=== PATIENT | female | born 1995 | race Caucasian/White ===

== ENCOUNTER 2016-10-15 02:09 | Inpatient (IN) | payer OTHER ==
[~2016-10-15] VITALS: Ht 167.6 cm; Wt 76.7 kg
[~2016-10-15 02:09] MED LIST: FAMO20T PO; ONDA8TAB10 PO
[2016-10-15] MEDS ORDERED: Lactated Ringer's 1,000 ML IV PRN (07:16)
[2016-10-15] MEDS ORDERED: Sodium Chloride LOK Flush 10 mL Syringe IVFLUSH PRN (07:20)
[2016-10-15] MEDS ORDERED: Methylergonovine 0.2 mg/mL Inj IM PRN ×3 (07:20→21:00)
[2016-10-15] MEDS ORDERED: Oxytocin 30 Units/500 mL LR 30 UNITS in IV Premix 1 EACH IV PRN ×3 (07:20→21:00)
[2016-10-15] MEDS ORDERED: Carboprost 250 mCg/mL Inj IM PRN ×3 (07:20→21:00)
[2016-10-15] MEDS ORDERED: Oxytocin 10 Unit/mL Inj IM PRN ×3 (07:20→21:00)
[2016-10-15] MEDS ORDERED: Hemorrhage Kit, Post Partum XX ONE ×3 (07:20→21:00)
--- NOTE | 2016-10-15 08:32 | PCM.HPOB ---
Subjective Date of Service: Oct 15, 2016 Referring Provider: Admitting Physician: Von Cooley MD Primary Care Physician: Awa Khan Attending Physician: Von Cooley MD Chief Complaint Induction if Labor at 41 weeks 4 days gestation History of Present History of Present Illness 21-year-old presents to the [facility] for induction of labor for postdates at 41 weeks 4 days gestation. She has been feeling contractions since 3 AM, she has been having some nausea and vomiting since that time. She feels her water broke yesterday around noon however today the ROM+ test is negative. She is planning to breast-feed and desires an IUD . OB History: (1), Para (0) Obstetrical Complications: Other ( Mickey Cisterna Magna, Echogenic periventricular nodularity) Past Medical History Obstetrical History: none Gynecologic History: History of Yeast, trichomonas, most recently July 2016 and additionally Neisseria gonorrhoeae infections in May 2016. 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 Surgical History: none Hx Tobacco Use: Yes Smoking Status: Current Every Day Smoker (2 cig/day) Genetic Screening/Counseling Genetic Screening/Counseling: Negative Review of Systems Constitutional: Y: Chills Eyes: Denies: Blurred Vision, Vision Changes Cardiovascular: Denies: Chest Pain, Edema Respiratory: Denies: Cough, Wheezing Gastrointestinal: Reports: Nausea, Vomiting, Denies: Epigastric pain Genitourinary: Denies: Dysuria, Hematuria Neurological: Denies: Dizziness Allergy Coded Allergies: codeine (Verified Allergy, Unknown, 08/13/16) Uncoded Allergies: ALL OPIATES (Allergy, Unknown, 10/31/14) Exam Vital Signs Stable, normal Constitutional: Well-developed, Well-nourished HEENT: Atraumatic Lungs: Clear to Auscultation, Normal Air Movement Heart: Regular Rate/Rhythm, No Murmurs/Rubs/Gallops Abdomen: Gravid Neurological/Psychiatric: Alert, Oriented X3 Neuro: Grossly Neurologically Intact Labs/Diagnostics Labs Blood type A+, antibody screen negative, GBS negative, rubella and varicella nonimmune, RPR nonreactive HBsAg negative HIV nonreactive gonorrhea and chlamydia negative Maternal Blood Type: A (+) Hx Rho(D) Immune Globulin: No Antibody Screen: negative Group B Strep Results: Negative Previous with GBS: No Rubella: Non-Immune OB Intrapartum Assessment/Plan Assessment 21-year-old presents to the [facility] for induction of labor for postdates at 41 weeks 4 days gestation. Mother having some contractions, ROM+ negative, cervix dilated to 1.5, 50% effaced -2 station cervix is anterior and moderate in consistency. Problems: (1) Qualifiers: Weeks of gestation: 41 weeks Qualified Code: O48.0 - Post-term Plan: Continue expectant management. Status: Acute ICD Code: Z33.1 (2) Rubella non-immune status, antepartum Plan: MMR vaccine Status: Acute ICD Code: O99.89 (3) Maternal varicella, non-immune Plan: Parasellar vaccine at visit in clinic. Status: Acute ICD Code: O09.899 Pain Management: Epidural when desired, no opioids to be given by mouth or IV due to history of heroine abuse per patient request. Pain Evaluation: Adequate Pain Control Intrapartum plan Continue expectant management, augmentation of labor as needed. Post plan: Continue routine post care LISET GARRISON DO Oct 15, 2016 07:41
[2016-10-15 08:47] LABS: Mean Corpuscular Hemoglobin 29.7 pg (27.0-35.0); Mean Corpuscular Volume 92.3 fL (81-100)
[2016-10-15] MEDS: Ondansetron 2 mg/mL 2 mL Inj IVPUSH PRN ×2 (08:57→16:00)
[2016-10-15] MEDS: Lactated Ringer's 1,000 ML IV PRN ×2 (08:57→10:08)
[2016-10-15] MEDS ORDERED: Lactated Ringer's 500 ML IV ONE (10:12)
--- NOTE | 2016-10-15 10:12 | PCM.HPANE ---
Patient Data Date of Service: Oct 15, 2016 (1010) Surgeon Admitting Provider:Von Cooley MD Attending Provider:Von Cooley MD Primary Care Physician:Awa Khan Other Provider:Deidre Bullock Anesthesia Reason for Visit Induction INDUCTION Ht/WT & BMI Weight (Kilograms): 76 Body Mass Index Allergies Coded Allergies: codeine (Verified Allergy, Unknown, 08/13/16) Uncoded Allergies: ALL OPIATES (Allergy, Unknown, 10/31/14) Diabetes History Hx Diabetes?: No MRSA MRSA: No Medications Active Scripts Famotidine (Pepcid)20 Mg Mlexoc18 Mg PO BID #60 TABLET Prov:Alec Mayen MD 08/14/16 Ondansetron ODT 8 Mg Tab.rapdis8 Mg PO QID PRN For Nausea #10 TABLET Prov:Alec Mayen MD 08/14/16 History History of ENT Problems?: No Hx of Heart Problems?: Yes (history of congenital heart defect repaired as child) Cardiovascular History: Denies:: Congestive Heart Failure Hypertension Hx of Respiratory Problem?: No Respiratory History: Denies:: Tuberculosis Hx Neurologic Problems?: No Hx of GI Problems?: No Hx of Problems?: No Female Hx: Positive for:: Currently Hx Musculoskeletal Problems?: No Hx of Psycho/Social Problems?: No Hx Diabetes: No Hx Alcohol Use: NoHx Substance Use: Yes Smoking Status: Current Every Day Smoker (2 cig/day) Have You Smoked inLast 12 mo: Yes Stop/Bang VILMA Risk Assessment: Low Risk, <3 Yes Risk Assessment Category Category 1A: Patient has history of documented sleep apnea, and HAS NOT received any narcotic, sedative or anesthesia administration during this stay. Category 1B: Patient has history of documented sleep apnea, and HAS received any narcotic , sedative or anesthesia administration during this stay Category 2: Patient has SUSPECTED Obstructive Sleep Apnea, and HAS received any narcotic , sedative or anesthesia administration during this stay. Category 3: Patient has SUSPECTED Obstructive Sleep Apnea and HAS NOT received narcotic, sedative or anesthesia administration during this stay. Category 4: Outpatient in Procedural Areas with known sleep apnea or who screen positive for High Risk via the STOP/BANG questionnaire. Exam Exam General Appearance: Alert, Oriented X3, Cooperative, Moderate Distress HEENT/AIRWAY: MP 2 Lungs: Clear to Auscultation Heart: Exam Unremarkable Meds/Labs/Diagnostics Labs Test 10/15/16 08:30 White Blood Count 27.2th/mm3 (3.8-10.1) Red Blood Count 3.77mil/mm3 (3.90-5.20) Hemoglobin 11.2g/dL (12.0-15.6) Hematocrit 34.8% (35.0-46.0) Mean Corpuscular Volume 92.3fL (81-100) Mean Corpuscular Hemoglobin 29.7pg (27.0-35.0) Mean Corpuscular Hemoglobin Concent 32.2% (32.0-37.0) Red Cell Distribution Width 14.4% (12.3-15.4) Platelet Count 148bil/L (150-400) Plan Impression Patient chart reviewed, patient interviewed and anesthestic plan with risks, benefits, and alternatives discussed, and informed consent obtained. NPO Status: >8hrs ASA Physical Status: ASA2 Mod Systemic Disease Anesthetic Plan: Epidural Bene/Risks/Altern/Consents: Yes HP Complete Prior to Induction: Yes Zian Stephens MD Oct 15, 2016 10:12
[2016-10-15] MEDS ORDERED: fentaNYL 2 mCg/mL-Bupivicaine 0.125% 100 mL Premix EPIDURAL ONE (10:14)
[2016-10-15] MEDS ORDERED: fentaNYL 2 mCg/mL-Bupiv 0.125% 100 ML EPIDURAL SCH (10:15)
[2016-10-15] MEDS ORDERED: Atropine 1 mg/10 mL (Code) Syringe IVPUSH PRN (10:15)
[2016-10-15] MEDS ORDERED: EPHEDrine Sulfate 50 mg/mL Inj IVPUSH PRN (10:15)
[2016-10-15] MEDS ORDERED: Ondansetron 2 mg/mL 2 mL Inj IVPUSH PRN (10:15)
[2016-10-15] MEDS ORDERED: Phenylephrine/NS-PF 100 mCg/mL 5 mL Syringe IVPUSH ONE (10:30)
[2016-10-15] MEDS: Lactated Ringer's 1,000 ML IV SCH ×2 (10:30→13:23)
[2016-10-15] MEDS ORDERED: Lactated Ringer's 1,000 ML IV SCH ×3 (12:54→20:57)
[2016-10-15] MEDS ORDERED: 0.9% Sodium Chloride 1,000 ML ONE (18:12)
[2016-10-15] MEDS ORDERED: Acetaminophen IV 1,000 MG in IV Premix 1 EACH IV ONE (18:50)
[2016-10-15] MEDS: Ampicillin Inj 2,000 MG in 0.9% Sodium Chloride 100 ML IV SCH (19:05)
[2016-10-15] MEDS ORDERED: SODIUM CHLORIDE 0.9% IV SCH (19:30)
[2016-10-15] MEDS ORDERED: GENTAMICIN IV SCH (19:30)
[2016-10-15] MEDS ORDERED: Measles-Mumps-Rubella Vaccine 0.5 mL Inj SUBQ ONE (21:00)
[2016-10-15] MEDS ORDERED: Benzocaine (Dermoplast) 20% 60 Gm Spray TOPICAL PRN (21:00)
[2016-10-15] MEDS ORDERED: Witch Hazel-Glycerin Pads TOPICAL PRN (21:00)
[2016-10-15] MEDS ORDERED: LANOlin HPA 7 Gm Ointment TOPICAL PRN (21:00)
[2016-10-16] MEDS: Ampicillin Inj 2,000 MG in 0.9% Sodium Chloride 100 ML IV SCH ×3 (01:00→13:23)
--- NOTE | 2016-10-16 02:06 | OP ---
[address] [address] OPERATIVE REPORT PATIENT: ANURAG ROE : 1995 MR#: [id number] ADMIT: 10/15/2016 JOB ID: [id number] DATE OF SURGERY: PREOPERATIVE DIAGNOSIS(ES): Intrauterine at 41 weeks and 4 days. 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 SURGEON: Vianney Mina MD DESCRIPTION OF PROCEDURE: This is a 21-year-old, 1 para 0, at 41 weeks and 4 days. She was admitted for induction of labor for postdate. Group B strep negative. complicated with Genetic disease of the fetus, X-linked FLNA mutation, with an ultrasound finding of dary cisterna magna and echogenic periventricular nodularity, with growth significant for an abdominal circumference of 5th percentile at 34 weeks and 4 days ultrasound, and history of maternal opioid abuse in the past , history of gonorrhea and Trichomonas infection during this , with negative screen for gonorrhea, chlamydia and Trichomonas on September 05, 2016. The patient presented for scheduled induction of labor. Cervix was 1-2 cm, 40-50%, -2 mid position and anterior. She was jess spontaneously regularly, then she was augmented with Pitocin that was started around 1317 on October 15, 2016. Then, she progressed in labor to be in active labor at around 1536, where the cervix was found to be 6 cm dilated, 100%, and -1. Then, spontaneous rupture of membrane at 1544. Clear fluid. She progressed in labor and Pitocin to be completely dilated at 1656. In second stage of labor patient developed chorioamnionitis based on fever maximum temperature 39.2 C and tachycardia with baseline 170's along with maternal leukocytosis (WBC 27). No foul odor amniotic fluid and no uterine tenderness. Patient was started on Ampicillin (dose was completed before delivery less then 2 hours before delivery ) and Gentamicin (dose was completed after delivery). Patient delivered on October 15, 2016, at 1947, via spontaneous vaginal delivery over intact perineum under epidural anesthesia. Delivered a female in cephalic occiput anterior position, with two nuchal cords were released before delivery of the posterior arm and shoulders that was delivered without difficulty. The infant was placed on the maternal abdomen. The hemming and tacking machine operator was present in the room for evaluation of the . Apgars were 7 and 8 at one and five minutes, respectively. Delayed cord clamp was performed after 1 minute. The placenta was delivered spontaneously intact with three-vessel cord and sent for pathology. The perineum was examined and a grade 3a perineal laceration was repaired using 2-0 Vicryl and 3-0 Vicryl in the usual fashion. Estimated blood loss 400 mL. weight 3662 g, equivalent to 8 pounds 1 ounce. Oxytocin was started after delivery of the placenta. The fundus was massaged and was firm. Mother and in the delivery room recovering in stable condition. All instrument and needle counts were correct x2. I, Vianney Mina MD, was present and performed the entire above delivery. [facility]
[2016-10-16] MEDS ORDERED: Acetaminophen IV 1,000 MG in IV Premix 1 EACH IV PRN (02:10)
[2016-10-16 06:02] LABS: Mean Corpuscular Hemoglobin 30.1 pg (27.0-35.0); Mean Corpuscular Volume 93.7 fL (81-100)
--- NOTE | 2016-10-16 08:35 | PCM.PNOBPP ---
Subjective Date of Service Oct 16, 2016 Post : Spontaneous Vaginal Delivery Subjective 21-year-old presented to the [facility] for induction of labor for postdates at 41 weeks 4 days gestation on Sep. She had been jess and was found to have some cervical change. Oxytocin was started, patient delivered via normal spontaneous vaginal delivery with third degree perineal laceration yesterday evening. She had been having some tachycardia up to 112 BPM. She was mildly febrile throughout the evening with a max temp of 38.9, at midnight her temperature was 37.2. She has been on Ampicillin and received 1 dose gentamicin. She reports feeling well this morning, has been ambulating on her own no problems with urination or passing gas. She is using only ibuprofen for pain and tolerating that well. She is concerned about baby as the is currently in the special care nursery and there was some discussion of the being sent to [facility]. If baby is transferred patient would like to go with infant even if that means and early discharge. Lochia: Normal Pain Management: PO pain meds (ibuprofen) Gastrointestinal: Good Appetite, No N/V Postop Activity: Ambulating Independently Group B Strep Results: Negative Rubella: Non-Immune Blood Type: A (+) RH Type: Positive Labs Laboratory Tests 10/16/16 05:50: White Blood Count 30.8, Red Blood Count 2.86, Hemoglobin 8.6, Hematocrit 26.8, Mean Corpuscular Volume 93.7, Mean Corpuscular Hemoglobin 30.1, Mean Corpuscular Hemoglobin Concent 32.1, Red Cell Distribution Width 14.5, Platelet Count 136 Exam Vital Signs Vital Signs 10/16/16 00:06 BP 88/52 HR 99 R 18 Temp 37.2 Vital Signs: VS reviewed, stable Exam Abdomen: Fundus firm, Abdomen non-tender : Voiding without difficulty Extremities: Edema 1+ Lungs: Clear to Auscultation, Normal Air Movement Heart: Regular Rate/Rhythm, No Murmurs/Rubs/Gallops General: Alert, Oriented X3 OB Post Assessment/Plan Assessment 21-year-old presented to the [facility] for induction of labor for postdates at 41 weeks 4 days gestation on Sep. She is now day 1 status post normal spontaneous vaginal delivery. Complicated by chorioamnionitis. Patient is doing well overall with normalization of vital signs. WBC increased to 30.8 today from 27.2 yesterday. Problems: (1) (spontaneous vaginal delivery) Plan: Routine care Status: Acute ICD Code: O80 (2) Qualifiers: Weeks of gestation: 41 weeks Qualified Code: O48.0 - Post-term Status: Resolved ICD Code: Z33.1 (3) Rubella non-immune status, antepartum Plan: MMR vaccine given Status: Acute ICD Code: O99.89 (4) Maternal varicella, non-immune Plan: Varicella vaccine at visit in clinic. Status: Acute ICD Code: O09.899 Pain Evaluation: Adequate Pain Control Post plan: Continue routine post care Plan: Continue to monitor for signs of infection. She will have received Amp/Gent x 24 hours around 7pm tonight and then they will be discontinued. Repeat CBC with diff in am. Continue routine care. Possible discharge home tomorrow evening - but more likely discharge home if no additional fevers or concerns. Attending Statement The patient was seen and examined together with Dr. Campos on 10/16/2016 and I agree with the history, exam and plan as outlined in the note above. / MD MELI Vyas ERIKA R DO Oct 16, 2016 08:09 Pietro Garvin MD Oct 16, 2016 15:58
[2016-10-16] MEDS ORDERED: Ascorbic Acid PO (09:03)
[2016-10-16] MEDS ORDERED: DOCU-41 PO (09:03)
[2016-10-16] MEDS ORDERED: FERR-74 PO (09:03)
[2016-10-16] MEDS ORDERED: IBUP800T28 PO (09:03)
[2016-10-16] MEDS: Ascorbic Acid 500 mg Tablet PO SCH ×3 (10:30→19:39)
--- NOTE | 2016-10-16 11:14 | NUR ---
Social Work Note: Initial Assessment D: Pt is a 21 year old female who gave to BG on 10/15/2016. Pt reported that she currently lives in [place] with her mother. Pt indicated that she intends to return to that home with BG once discharged. Pt explained that she has all of the supplies that she will need to care for BG at home. Pt indicated that she is enrolled in [employer], [employer] and [employer]. Pt reported that BG is her first child and she has no previous CPS involvement. 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 Pt and BG both has negative UDS. Pt denied any history of DV. Pt reported a history of Bipolar I Disorder which is currently being managed through regular appointments with her counselor at [facility] and with Sertraline. Pt explained that her symptoms became much more pronounced when she became and she and her PCP decided to start her on the Sertraline. Pt reported that the medication has been helping and her symptoms have been much more manageable. Pt reported that her mother is her primary support in the area and explained that her mother is available to assist in caring for BG if needed. Pt reported that FOB was not involved in her life and has expressed no desire to be involved in caring for BG. Pt declined to provide FOB's name. Pt reported no additional needs prior to discharge. A: Deferred P: Pt is enrolled in appropriate renal social worker. Pt has a history of CD but has been clean and sober for four years with a negative UDS in the hospital. Pt has a strong support in her mother and reported that she feels safe at home and fully supported. Pt has a history of mental illness which is currently being successfully managed by medication and outpatient mental health treatment. property staff accountant reported that Pt and her mother have been appropriate and affectionate with BG while in the hospital. property staff accountant reported no additional concerns. COLD MILL INSPECTOR conferred with property staff accountant and it was determined that no CPS report would be needed at this time. Pt to be discharged once medically cleared by [facility] . MAN Sharif, AAC
[2016-10-16] MEDS ORDERED: Ampicillin Inj 2,000 MG in 0.9% Sodium Chloride 100 ML IV SCH (19:00)
[2016-10-16] MEDS ORDERED: GENTAMICIN IV SCH (19:30)
[2016-10-16] MEDS ORDERED: SODIUM CHLORIDE 0.9% IV SCH (19:30)
[2016-10-17 07:00] LABS: BASOPHILS % (AUTO) 0.2 % (0-3); EOSINOPHILS % (AUTO) 0.7 % (0-5); MONOCYTES % (AUTO) 7.6 % (4-12); Mean Corpuscular Hemoglobin 29.5 pg (27.0-35.0); Mean Corpuscular Volume 93.8 fL (81-100); NEUTROPHILS % (AUTO) 72.2 % (40-74); Platelet Count 139 bil/L (150-400)
--- NOTE | 2016-10-17 10:37 | PCM.PNOBPP ---
Subjective Date of Service Oct 17, 2016 Post : Spontaneous Vaginal Delivery Subjective 21-year-old presented to the [facility] for induction of labor for postdates at 41 weeks 4 days gestation on Sep. She had been jess and was found to have some cervical change. Oxytocin was started, patient delivered via normal spontaneous vaginal delivery with third degree perineal laceration yesterday evening. She received 24hrs of treatment with both Ampicillin and gentamicin. She reports feeling well this morning, has been ambulating on her own no problems with urination or passing gas. She is using ibuprofen and tylenol for pain per her request and tolerating that well. Lochia: Normal Pain Management: PO pain meds (ibuprofen) Gastrointestinal: Good Appetite, No N/V Postop Activity: Ambulating Independently Group B Strep Results: Negative Rubella: Non-Immune Blood Type: A (+) RH Type: Positive Labs Laboratory Tests 10/17/16 06:15: White Blood Count 17.9, Red Blood Count 2.75, Hemoglobin 8.1, Hematocrit 25.8, Mean Corpuscular Volume 93.8, Mean Corpuscular Hemoglobin 29.5, Mean Corpuscular Hemoglobin Concent 31.4, Red Cell Distribution Width 14.3, Platelet Count 139, Neutrophils (%) (Auto) 72.2, Lymphocytes (%) (Auto) 18.2, Monocytes ( %) (Auto) 7.6, Eosinophils (%) (Auto) 0.7, Basophils (%) (Auto) 0.2 Exam Vital Signs Vital Signs BP 89/51 HR 73 R 18 Temp 36.2 Vital Signs: VS reviewed, stable Exam Abdomen: Fundus firm : Voiding without difficulty Extremities: No edema Lungs: Clear to Auscultation, Normal Air Movement Heart: Exam Unremarkable, No Murmurs/Rubs/Gallops General: Alert, Oriented X3 OB Post Assessment/Plan Assessment 21-year-old presented to the [facility] for induction of labor for postdates at 41 weeks 4 days gestation. She subsequently had a normal spontaneous vaginal delivery with signs of chorioamnionitis she was treated for 24 hours with ampicillin and gentamicin. Patient and baby both doing well. WBC trending down. Patient remains anemic and is being treated with iron and vitamin C. Problems: (1) (spontaneous vaginal delivery) Plan: Routine care Status: Acute ICD Code: O80 (2) Qualifiers: Weeks of gestation: 41 weeks Qualified Code: O48.0 - Post-term Status: Resolved ICD Code: Z33.1 (3) Rubella non-immune status, antepartum Plan: MMR vaccine given Status: Acute ICD Code: O99.89 (4) Maternal varicella, non-immune Plan: Varicella vaccine at visit in clinic. Status: Acute ICD Code: O09.899 Pain Evaluation: Adequate Pain Control Post plan: Continue routine post care Plan: Continue to monitor for signs of infection. She will have received Amp/Gent x 24 hours around 7pm tonight and then they will be discontinued. Repeat CBC with diff in am. Continue routine care. Possible discharge home tomorrow evening - but more likely discharge home if no additional fevers or concerns. LISET GARRISON DO Oct 17, 2016 09:44
--- NOTE | 2016-10-17 11:28 | PATH ---
SURGICAL PATHOLOGY Attending Physician:Vianney Mina CASE STATUS: Signed Out PATIENT NAME: ANURAG ROE PID: [id number] : 1995 DATE COLLECTED:10/15/2016 00:00 SPECIMEN: Placenta CLINICAL HISTORY: CHORIOAMNIONITIS 1). PLACENTA FINAL DIAGNOSIS: Placenta with Umbilical Cord and Membranes: 1. Placenta: 596 grams. Acute inflammation of the chorionic plate with associated acute arteritis and phlebitis. Negative for evidence of acute villitis. 2. Umbilical cord: 24.6 cm in length with three normal blood vessels. Cord has a furcate insertion 5.5 cm from the placental edge. Acute omphalitis with associated acute arteritis and phlebitis. 3. membranes: Diffuse severe acute chorioamnionitis. ICD10 O41.1 GROSS DESCRIPTION: The specimen is received in formalin, labeled with the patient's name and consists of an intact placenta and includes placental disc (596 g, 18.5 x 16.2 x 3.5 cm), umbilical cord received in 2 pieces (length-24.6 cm, diameter-1.1 x 0.8 cm) and detached membranes. The membranes rupture site cannot be determined. The membranes are translucent. The umbilical cord has a furcate insertion 5.5 cm from the edge of the placenta and contains 3 vessels. The surface is smooth and shiny with no evidence of meconium. The maternal surface is dark maroon with normal cotyledon formation. The placental disc is spongy with no hematomas, infarcts, nodules, masses, or lesions. Section code: (A) membranes, umbilical cord; (B-C, D-E, F) placenta, 3 full thickness sections. 10/16/16 ICD-9 CODES: CPT CODES: 1: 68481 Electronically Signed Out Kyle Reynoso MD [facility] Pathology [facility] [address], [place] [address] Technical component performed at [facility], [facility] [address], [place], [address]
[2016-10-17] MEDS: Ascorbic Acid 500 mg Tablet PO SCH (16:03)
[2016-10-18] MEDS: Ascorbic Acid 500 mg Tablet PO SCH (09:08)
--- NOTE | 2016-10-18 09:32 | PCM.PNOBPP ---
Subjective Date of Service Oct 18, 2016 Post : Spontaneous Vaginal Delivery Subjective 21-year-old was admitted to the [facility] for induction of labor for postdates at 41 weeks 4 days gestation on Sep. Patient delivered via normal spontaneous vaginal delivery with third degree perineal laceration The evening of Oct 15. She received 24hrs of treatment with both Ampicillin and gentamicin. She reports feeling well this morning, has been ambulating on her own, she goes to and from the [facility]. She is having no problems with urination or passing gas. She is using ibuprofen and tylenol for pain per her request and tolerating that well. No light headedness or dizziness. Lochia: Normal Pain Management: PO pain meds (ibuprofen) Gastrointestinal: Good Appetite, No N/V Postop Activity: Ambulating Independently Group B Strep Results: Negative Rubella: Non-Immune Blood Type: A (+) RH Type: Positive Labs Laboratory Tests 10/17/16 06:15: White Blood Count 17.9, Red Blood Count 2.75, Hemoglobin 8.1, Hematocrit 25.8, Mean Corpuscular Volume 93.8, Mean Corpuscular Hemoglobin 29.5, Mean Corpuscular Hemoglobin Concent 31.4, Red Cell Distribution Width 14.3, Platelet Count 139, Neutrophils (%) (Auto) 72.2, Lymphocytes (%) (Auto) 18.2, Monocytes ( %) (Auto) 7.6, Eosinophils (%) (Auto) 0.7, Basophils (%) (Auto) 0.2 Exam Vital Signs Vital Signs: VS reviewed, stable Exam Abdomen: Fundus firm, Abdomen soft, Abdomen non-tender Extremities: Normal pulses, Edema 1+ Lungs: Clear to Auscultation, Normal Air Movement Heart: Regular Rate/Rhythm, No Murmurs/Rubs/Gallops General: Alert, Oriented X3 OB Post Assessment/Plan Assessment 21-year-old presented to the [facility] for induction of labor for postdates at 41 weeks 4 days gestation. She subsequently had a normal spontaneous vaginal delivery with signs of chorioamnionitis she was treated for 24 hours with ampicillin and gentamicin. Patient remains anemic and is being treated with iron and vitamin C. Critically elevated WBC has come down, Patient and baby both doing well. Problems: (1) (spontaneous vaginal delivery) Plan: Routine care Status: Acute ICD Code: O80 (2) Qualifiers: Weeks of gestation: 41 weeks Qualified Code: O48.0 - Post-term Status: Resolved ICD Code: Z33.1 (3) Rubella non-immune status, antepartum Plan: Patient's lab value falls in the equivocal range, she will be given MMR vaccine today. Status: Acute ICD Code: O99.89 (4) Chorioamnionitis Qualifiers: Fetus number: single or unspecified fetus Trimester: third trimester Qualified Code: O41.1230 - Chorioamnionitis, third trimester, not applicable or unspecified Plan: Treated adequately with 24 hours of Ampicillin and Gentamicin. Patient is meeting goals without signs of continued infection. Status: Resolved ICD Code: O41.1290 (5) Maternal varicella, non-immune Plan: Varicella vaccine at visit in clinic. Status: Acute ICD Code: O09.899 Pain Evaluation: Adequate Pain Control Post plan: Continue routine post care Plan: Discharge home today with no additional fevers or concerns. Attending Statement Patient seen and examined. She is doing well this morning. No fevers or chills , has been afebrile since 2300 hrs 10/15. Rubella nonimmune, plan to vaccinate today prior to discharge. Will need varicella in clinic. Pumping with some difficulty in let down and milk supply. Pain is well controlled, ambulating within her room, lochia is minimal. Will plan to discharge to boarder status today, likely infant discharge tomorrow. precautions reviewed. LISET GARRISON DO Oct 18, 2016 09:05 Michelle Lyles MD Oct 18, 2016 12:56
--- NOTE | 2016-10-18 10:03 | PCM.DIOB ---
Obstetrical Disch Instruction Dates of Hospitalization Date of Hospital Admission Oct 15, 2016 at 07:16 Providers Admitting Physician: Von Cooley MD Primary Care Physician: Awa Khan Attending Physician: Von Cooley MD Discharge Diagnosis Problems: (1) (spontaneous vaginal delivery) Plan: Mother doing well. Discharge to [facility] status in stable condition Status: Acute ICD Code: O80 (2) Qualifiers: Weeks of gestation: 41 weeks Qualified Code: O48.0 - Post-term Status: Resolved ICD Code: Z33.1 (3) Rubella non-immune status, antepartum Plan: MMR vaccine given Status: Acute ICD Code: O99.89 (4) Maternal varicella, non-immune Plan: Varicella vaccine at visit in clinic. Status: Acute ICD Code: O09.899 Diet Discharge Diet: No restrictions Activity Discharge Activity-General: Pelvic Rest for 6 weeks, Try not to overdue, Balance rest and activity, Activity as pain allows, No lifting >15 pounds for 2 weeks Dressing and Incisional Care Hygiene: May shower, Perineal care, Dermoplast spray, Witch Sammi pads Additional Instructions Discharge Instructions Be sure to follow up in 6 weeks at [facility]. You have been given a prescription for ibuprofen to take as needed for pain. You been given a prescription for docusate to keep you regular, please take this as needed Please continue to take your vitamin Pelvic rest for 6 weeks (nothing per vagina including intercourse, tampons) If you have a fever greater than 100.4, please call [facility]. There is always someone supervisor show operations to talk to. If you have an increase in bleeding, call [facility]. If you have a lot of bleeding suddenly, especially if you have symptoms of dizziness & weakness with it, get emergency help. If you start experiencing extreme depression, especially if you feel that you are a danger to yourself or your family, seek emergency help. You have been through a lot -- BE SURE TO TAKE CARE OF YOURSELF. Follow Up Plan Follow Up Plan Follow up in [facility] in 6 weeks. Follow-up appointment: Weeks (6) Call your provider for: Fever or Chills, Shortness of breath, Heavy vaginal bleeding, Heavy bleeding, Epigastric pain, Excessive constipation, Vaginal discomfort, Red painful breasts JAGJIT MCELROY DO Oct 18, 2016 10:00
[2016-10-18] MEDS ORDERED: Measles-Mumps-Rubella Vaccine 0.5 mL Inj SUBQ ONE (10:55)
--- NOTE | 2016-10-18 11:46 | PCM.DC.OB ---
Obstetrical Discharge Summary Date of Service Oct 18, 2016 Date of hospital admission Oct 15, 2016 at 07:16 Date of Discharge: Oct 18, 2016 Providers Admitting Physician: Von Cooley MD Primary Care Physician: Awa Khan Attending Physician: Von Cooley MD Diagnosis at Time of Discharge Normal spontaneous vaginal delivery Problems: (1) (spontaneous vaginal delivery) Plan: Mother doing well. Discharge to [facility] status in stable condition Status: Acute ICD Code: O80 (2) Qualifiers: Weeks of gestation: 41 weeks Qualified Code: O48.0 - Post-term Status: Resolved ICD Code: Z33.1 (3) Rubella non-immune status, antepartum Plan: Rubella equivocal, MMR vaccine given today. Status: Acute ICD Code: O99.89 (4) Chorioamnionitis Qualifiers: Fetus number: single or unspecified fetus Trimester: third trimester Qualified Code: O41.1230 - Chorioamnionitis, third trimester, not applicable or unspecified Status: Resolved ICD Code: O41.1290 (5) Maternal varicella, non-immune Plan: Varicella vaccine at visit in clinic. Status: Acute ICD Code: O09.899 Invasive procedures Normal spontaneous vaginal delivery with third degree tear. Date of Procedure: Oct 15, 2016 Brief History and Physical: HPI on day of admission: 21-year-old presents to the [facility] for induction of labor for postdates at 41 weeks 4 days gestation. She has been feeling contractions since 3 AM, she has been having some nausea and vomiting since that time. She feels her water broke yesterday around noon however today the ROM+ test is negative. She is planning to breast-feed and desires an IUD . Exam on day of discharge: vital signs stable and normal, well-nourished well- appearing, heart regular rate and rhythm no murmurs, lungs clear to auscultation bilaterally with good air movement. Abdomen soft, uterine fundus firm. +1 edema in bilateral lower extremities. Appropriate mood and affect. Hospital Course: 21-year-old presented to the [facility] for induction of labor for postdates at 41 weeks 4 days gestation on Sep. She had been jess and was found to have some cervical change. Oxytocin was started. Patient had elevation of temperature and was tachycardic, she was started on both Ampicillin and gentamicin. Patient delivered via normal spontaneous vaginal delivery with third degree perineal laceration. She received 24hrs of antibiotic treatment. She was afebrile for 48 hours prior to discharge. Patient remained asymptomatically hypotensive throughout her stay. She is discharged to boarder status in stable condition. ([Ascorbic Acid]) 500 MG TABLET 500 MG PO DAILY Take with Iron Prescribed by: LISET GARRISON DO Docusate Sodium (Colace) 100 Mg Capsule 100 MG PO DAILY PRN PRN For Constipation Prescribed by: LISET GARRISON DO Famotidine (Pepcid) 20 Mg Tablet 20 MG PO BID Prescribed by: CHRIS ANN MD Ferrous Sulfate (Feosol) 325 Mg Tablet 325 MG PO DAILY Take with Vitamin C Prescribed by: LISET GARRISON DO Ibuprofen (Ibuprofen) 800 Mg Tablet 800 MG PO Q6H PRN PRN For Pain Prescribed by: LISET GARRISON DO Ondansetron ODT (Ondansetron ODT) 8 Mg Tab.rapdis 8 MG PO QID PRN PRN For Nausea Prescribed by: CHRIS ANN MD Disposition Discharge to boarder status. Follow-up plan 6 weeks at [facility] Discharge Diet: No restrictions Discharge Activity-General: Pelvic Rest for 6 weeks, Balance rest and activity Patient instructions Be sure to follow up in 6 weeks at [facility]. You have been given a prescription for ibuprofen to take as needed for pain. You been given a prescription for docusate to keep you regular, please take this as needed Please continue to take your vitamin Pelvic rest for 6 weeks (nothing per vagina including intercourse, tampons) If you have a fever greater than 100.4, please call [facility]. There is always someone cogeneration operator to talk to. If you have an increase in bleeding, call [facility]. If you have a lot of bleeding suddenly, especially if you have symptoms of dizziness & weakness with it, get emergency help. If you start experiencing extreme depression, especially if you feel that you are a danger to yourself or your family, seek emergency help. You have been through a lot -- BE SURE TO TAKE CARE OF YOURSELF. Attending Statement: Doing well today, plan to discharge home. Blood pressures are low but she is asymptomatic. She has been afebrile off of antibiotics for two days, last temperature at time of delivery. Baby girl is stable and doing well. Plan to discharge home, follow up in clinic for 6 week visit. Plan for IUD insertion at that time as well as varicella vaccination. LISET GARRISON DO Oct 18, 2016 11:15 Michelle Lyles MD Oct 22, 2016 08:56
[2016-10-18 12:20] VITALS: BP 97/62; PULSE 65; RESP 18
== END 2016-10-18 14:00 | disposition home or self-care (01) | DRG 542 ==
LOC: FBC 07:16
PROVIDERS: ADMIT Obstetrics & Gynecology; ATTEND Obstetrics & Gynecology
PROC: 0DQR0ZZ Repair Anal Sphincter, Open Approach (ICD-10-PCS; 2016-10-15)
PROC: 3E0P7GC Introduction of Other Therapeutic Substance into Female Reproductive, Via Natural or Artificial Opening (ICD-10-PCS; 2016-10-15)
PROC: 10E0XZZ Delivery of Products of Conception, External Approach (ICD-10-PCS; principal; 2016-10-16)
PROC: 3E0234Z Introduction of Serum, Toxoid and Vaccine into Muscle, Percutaneous Approach (ICD-10-PCS; 2016-10-18)
DX: O48.0 Post-term pregnancy (principal); O41.1230 Chorioamnionitis, third trimester, not applicable or unspecified; O70.20 Third degree perineal laceration during delivery, unspecified; O69.81X0 Labor and delivery complicated by cord around neck, without compression, not applicable or unspecified; O99.334 Smoking (tobacco) complicating childbirth; Z3A.41 41 weeks gestation of pregnancy; Z37.0 Single live birth; Z23 Encounter for immunization

== ENCOUNTER 2017-02-13 18:22 | Emergency (ER) | payer OTHER ==
[~2017-02-13] VITALS: Ht 167.6 cm; Wt 54.5 kg
[~2017-02-13 18:22] MED LIST changes: +Ascorbic Acid PO; +DOCU-41 PO; +FERR-74 PO; +IBUP800T28 PO
[2017-02-13 18:25] VITALS: BP 102/76; PULSE 99; RESP 18; O2SAT 97
[2017-02-13 19:44] LABS: BASOPHILS % (AUTO) 0.2 % (0-3); EOSINOPHILS % (AUTO) 0.1 % (0-5); MONOCYTES % (AUTO) 12.9 % (4-12); Mean Corpuscular Hemoglobin 30.1 pg (27.0-35.0); NEUTROPHILS % (AUTO) 72.8 % (40-74); Platelet Count 124 bil/L (150-400)
[2017-02-13 20:06] LABS: APPEARANCE,URINE CLEAR (CLEAR,HAZY); COLOR,URINE YELLOW (YELLOW); OCCULT BLOOD,URINE NEGATIVE (NEGATIVE); UROBILINOGEN,URINE NORMAL (NORMAL)
--- NOTE | 2017-02-13 20:13 | DRSVH ---
PROCEDURE: X-RAY CHEST ONE VIEW, PORTABLE ([id number]) INDICATIONS: cough TECHNIQUE: One view of the chest was acquired. COMPARISON: None. FINDINGS: Surgical changes and devices: None. Lungs and pleura: No pleural effusions or pneumothorax. Lungs are clear. Mediastinum: Mediastinal contours appear normal. Heart size is normal. Bones and chest wall: No suspicious bony lesions. Overlying soft tissues appear unremarkable. IMPRESSION: No acute acute disease is seen in the chest. Cause of a vertical shadow just lateral to the descending aorta and medial to the left heart border i s not understood. 2 view chest may be useful in this patient. Dictated by: Rah Willoughby M.D. on 02/13/2017 at 20:08 Approved by: Rah Willoughby M.D. on 02/13/2017 at 20:11
--- NOTE | 2017-02-13 21:02 | ED.REPORT ---
HPI-General Illness Date of Service February 13, 2017 ED Provider: Paxton Estevez MD 22 year old female presents to the ER with 3 days of nasal congestion. Pt has been taking cough drops with slight improvement. This morning woke up with general malaise, myalgias/arthralgias, headache, chills, mild nausea and cough ( with vomiting). Pt denies diarrhea, dysuria and rash. Pt's daughter has also been ill. Nursing Notes Stated Complaint: SINUS PAIN & VOMITING Chief Complaint: FLU/Cold Symptoms Nursing Notes Reviewed: Yes Allergies: Coded Allergies: codeine (Verified Allergy, Unknown, 08/13/16) Uncoded Allergies: ALL OPIATES (Allergy, Unknown, 10/31/14) Scheduled ([Ascorbic Acid]) 500 MG TABLET 500 MG PO DAILY Take with Iron Famotidine (Pepcid) 20 Mg Tablet 20 MG PO BID Ferrous Sulfate (Feosol) 325 Mg Tablet 325 MG PO DAILY Take with Vitamin C Scheduled PRN Docusate Sodium (Colace) 100 Mg Capsule 100 MG PO DAILY PRN PRN For Constipation Ibuprofen (Ibuprofen) 800 Mg Tablet 800 MG PO Q6H PRN PRN For Pain Ondansetron ODT (Ondansetron ODT) 8 Mg Tab.rapdis 8 MG PO QID PRN PRN For Nausea General Time Seen by MD: 21:01 Chief Complaint Flu-like illness Hx Obtained From: Patient Arrived By: Walk-in Onset Occurred: 3 days ago Symptom Duration: Since onset Quality: Aching (diffuse) Severity: Current: Moderate Associated with: Reports: Fever, Joint pain Past Medical History Past Medical History hx of melanoma, treated at [facility], had radiation for 6 times at age 13 H/o constipation UTI Past Surgical History denies Smoking History Current Every Day Smoker Social History Alcohol Use: Denies alcohol use Drug Use: In recovery Occupation lives with friend, working as a [employer] Ambulatory Status Independent Review of Systems Full Review of Systems Constitutional: Reports: Chills, Fever, Malaise Ears / Nose / Throat: Reports: Nasal congestion, Denies: Sore throat Respiratory: Reports: Non-productive cough, Denies: Shortness of breath GI: Reports: Nausea, Denies: Abdominal pain, Diarrhea, Vomiting Female: Denies: Dysuria, Flank pain, Musculoskeletal: Reports: Joint pain, Myalgia, Denies: Back pain Skin: Denies Rash Neurologic: Reports: Headache, Denies: Change LOC Complete sys rev & neg: except as marked. Physical Exam Vital Signs Vital Signs Date Time Temp Pulse Resp B/P Pulse Ox O2 Delivery O2 Flow Rate FiO2 02/13/17 18:25 38.6 99 18 102/76 97 Room Air Initial VS: Reviewed Respiratory: Breath sounds normal, Clear to auscultation, No respiratory distress Cardiovascular: Regular rate & rhythm, Heart sounds normal, Intact distal pulses Abdomen / GI: Soft, Non-tender, No guarding, No rebound, No distention Extremities: Vascular intact, Neuro intact, No swelling, No tenderness Skin: Warm (Hot to touch), Dry, No cyanosis (No rash) Neurologic: Alert, Oriented, Nonfocal Psychiatric: Mood/affect normal, Behavior normal, Normal thought content General/Constitutional: Awake, Alert Head / Eyes: Atraumatic, Normocephalic, PERRL ENT: Airway patent, Mucous membranes moist, Pharynx NL, Tympanic membs NL, Ext aud canal NL, Nose exam NL, No sinus tenderness Neck: Supple, No meningismus, Full range of motion, No adenopathy Back: Atraumatic, Full range of motion Mild CVAT bilat Interpretation & Diagnostics Lab Results Interpretation Result Diagram: 02/13/17192902/13/171929 Test 02/13/17 19:30 White Blood Count 10.3th/mm3 (3.8-10.1) Red Blood Count 3.99mil/mm3 (3.90-5.20) Hemoglobin 12.0g/dL (12.0-15.6) Hematocrit 36.3% (35.0-46.0) Mean Corpuscular Volume 91.0fL (81-100) Mean Corpuscular Hemoglobin 30.1pg (27.0-35.0) Mean Corpuscular Hemoglobin Concent 33.1% (32.0-37.0) Red Cell Distribution Width 14.9% (12.3-15.4) Platelet Count 124bil/L (150-400) Neutrophils (%) (Auto) 72.8% (40-74) Lymphocytes (%) (Auto) 13.8% (14-46) Monocytes (%) (Auto) 12.9% (4-12) Eosinophils (%) (Auto) 0.1% (0-5) Basophils (%) (Auto) 0.2% (0-3) Urine Color Yellow (YELLOW) Urine Appearance Clear (CLEAR,HAZY) Urine pH 6.0 (5.0-8.0) Urine Specific Weatherby 1.015 (1.003-1.035) Urine Protein Negativemg/dL (NEG,TRACE) Urine Glucose (UA) Negativemg/dL (NEGATIVE) Urine Ketones Negativemg/dL (NEGATIVE) Urine Occult Blood Negative (NEGATIVE) Urine Nitrite Negative (NEGATIVE) Urine Bilirubin Negative (NEGATIVE) Urine Urobilinogen Normalmg/dL (NORMAL) Urine Leukocyte Esterase Negative (NEGATIVE) Urine RBC 0-2/hpf (0-2) Urine WBC 0-5/hpf (0-5) Urine Epithelial Cells Few/hpf (NONE-MOD) Urine Crystals None seen (NONE SEEN) Urine Bacteria None/hpf (NONE-FEW) Urine Hyaline Casts None/lpf (NONE) Urine Granular Casts None seen (NONE SEEN) Urine Waxy Casts None seen (NONE SEEN) Urine Red Blood Cell Casts None seen (NONE SEEN) Urine White Blood Cell Casts None seen (NONE SEEN) Urine Mucus None seen (None Seen) Urine Trichomonas None seen (NONE SEEN) Urine Yeast None (NONE SEEN) Urinalysis Comment None Urine Culture Reflexed Not indicated Sodium Level 135mEq/L (134-144) Potassium Level 4.1mEq/L (3.5-5.2) Chloride Level 100mEq/L (97-108) Carbon Dioxide Level 23mmol/L (18-29) Blood Urea Nitrogen 12mg/dL (6-20) Creatinine 0.82mg/dL (0.57-1.00) Estimat Glomerular Filtration Rate 123mL/min (>59) Glucose Level 98mg/dL (60-99) Calcium Level 8.9mg/dL (8.5-10.1) Total Bilirubin 0.3mg/dL (0.0-1.2) Aspartate Amino Transf (AST/SGOT) 34U/L (0-50) Alanine Aminotransferase (ALT/SGPT) 27U/L (0-32) Alkaline Phosphatase 83U/L (25-150) Pro-B-Type Natriuretic Peptide 168.9pg/mL (0-130) Total Protein 7.3g/dL (6.4-8.4) Albumin 3.8g/dL (3.4-5.0) Hold Ahuja Top Tube Received (Received) Re-Eval/Medical Decision Time of Eval: 21:26 Re-Evaluation/Progress Note: Discussed plan for discharge and follow up. All questions addressed. Counseled Regarding: Diagnosis, Need for follow-up, When/why to return to ED Discharge & Departure Primary Impression: Fever Fever type: unspecified Qualified Code: R50.9 - Fever, unspecified Disposition: Home Discharge Condition All VS Reviewed: Yes Condition: Stable Patient Instructions: Fever in Adults (ED) Additional Instructions: Your symptoms are most likely due to a viral illness. Get plenty of rest and drink frequent fluids. For pain you can take 800mg Ibuprofen every 8 hours and 2 extra-strength Tylenol every 6 hours. Return to the ER if you are too weak to get out of bed, severe abdominal pain, shortness of breath at rest or uncontrollable fever. I recommend that you keep . Wear a mask and clean your breast/hands before. Quit smoking! I hope you are feeling better soon ! Referrals: [facility] (PCP) Scribe Attestation Portions of this note were transcribed by Brandie Knox. I, (Dr. Estevez) personally performed the history, physical exam and medical decision-making; I reviewed and confirmed the accuracy of the information in the transcribed note. Signed by: Brandie Knox. Chiqui, 02/13/2017, 2035 copies to: [facility] Paxton Estevez MD February 13, 2017 21:02 Brandie Knox February 13, 2017 21:27
[2017-02-13 21:49] VITALS: BP 98/60; PULSE 92; O2SAT 98
[2017-02-13 21:53] VITALS: BP 98/60; PULSE 92; RESP 18; O2SAT 98
== END 2017-02-13 21:53 | disposition home or self-care (01) ==
LOC: SED 18:22
DX: R50.9 Fever, unspecified (principal); R05 Cough; R53.81 Other malaise; R11.0 Nausea; R51 Headache; F17.200 Nicotine dependence, unspecified, uncomplicated; Z88.5 Allergy status to narcotic agent